=== PATIENT | female | born 1955 | race Caucasian/White ===

== ENCOUNTER → 2021-04-21 | Outpatient (CLI) | payer OTHER ==
[~2021-04-21] MED LIST: CEFUROXIME500 MG PO; COQ1050 MG PO; FISH OIL 1,0001 EACH PO; GLUCOPHAGE1000 MG PO; LASIX40 MG PO; LIPITOR TAB 2020 MG PO; NEURONTIN 400400 MG PO; PRINIVIL20 MG PO; PROZAC20 MG PO; VENTOLIN HFA 66.7 GM INH; VICTOZA 1818 MG/3 ML SQ; VITAMIN B-121000 MCG PO; ZYLOPRIM 300 M300 MG PO
== END ==
LOC: MAMO 02-24 11:00
DX: Z12.31 Encounter for screening mammogram for malignant neoplasm of breast (principal)
CPT/HCPCS: 77063; 77067